=== PATIENT | female | born 1965 | race African-American/Black ===

== ENCOUNTER 2016-10-12 13:17 | Emergency (ER) | payer MEDICARE | END 2016-10-12 14:49 | disposition home or self-care (01) | LOC: D.ER 13:17 | DX: M54.16 Radiculopathy, lumbar region (principal); F17.200 Nicotine dependence, unspecified, uncomplicated; I10 Essential (primary) hypertension ==

== ENCOUNTER 2016-12-13 14:17 | Emergency (ER) | payer MEDICARE | END 2016-12-13 21:04 | disposition home or self-care (01) | LOC: D.ER 14:17 | DX: M25.551 Pain in right hip (principal); I10 Essential (primary) hypertension; E11.9 Type 2 diabetes mellitus without complications; F17.200 Nicotine dependence, unspecified, uncomplicated ==

== ENCOUNTER 2017-01-03 09:41 | Emergency (ER) | payer MEDICARE | END 2017-01-03 10:40 | disposition home or self-care (01) | LOC: D.ER 09:41 | DX: S76.011A Strain of muscle, fascia and tendon of right hip, initial encounter (principal); X58.XXXA Exposure to other specified factors, initial encounter; Y93.89 Activity, other specified; Y92.89 Other specified places as the place of occurrence of the external cause; M62.838 Other muscle spasm; M54.5 Low back pain; F17.200 Nicotine dependence, unspecified, uncomplicated; E11.9 Type 2 diabetes mellitus without complications; I10 Essential (primary) hypertension ==

== ENCOUNTER 2017-01-19 19:56 | Emergency (ER) | payer MEDICARE | END 2017-01-19 23:45 | disposition home or self-care (01) | LOC: D.ER 19:56 | DX: S86.912A Strain of unspecified muscle(s) and tendon(s) at lower leg level, left leg, initial encounter (principal); X58.XXXA Exposure to other specified factors, initial encounter; Y93.89 Activity, other specified; Y92.89 Other specified places as the place of occurrence of the external cause; E11.9 Type 2 diabetes mellitus without complications; I10 Essential (primary) hypertension; M54.16 Radiculopathy, lumbar region; F17.200 Nicotine dependence, unspecified, uncomplicated ==

== ENCOUNTER 2017-03-12 18:16 | Emergency (ER) | payer MEDICARE | END 2017-03-12 19:37 | disposition home or self-care (01) | LOC: D.ER 18:16 | DX: M62.838 Other muscle spasm (principal); E11.9 Type 2 diabetes mellitus without complications; I10 Essential (primary) hypertension ==

== ENCOUNTER 2017-03-15 10:48 | Emergency (ER) | payer MEDICARE | END 2017-03-15 11:53 | disposition home or self-care (01) | LOC: D.ER 10:48 | DX: M79.604 Pain in right leg (principal); E11.9 Type 2 diabetes mellitus without complications; I10 Essential (primary) hypertension; M54.16 Radiculopathy, lumbar region ==

== ENCOUNTER 2017-09-10 12:29 | Emergency (ER) | payer MEDICARE | END 2017-09-10 15:04 | disposition home or self-care (01) | LOC: D.ER 12:29 | DX: S39.012A Strain of muscle, fascia and tendon of lower back, initial encounter (principal); X58.XXXA Exposure to other specified factors, initial encounter; Y93.89 Activity, other specified; Y92.89 Other specified places as the place of occurrence of the external cause; M79.652 Pain in left thigh; M79.651 Pain in right thigh; E11.9 Type 2 diabetes mellitus without complications; I10 Essential (primary) hypertension ==

== ENCOUNTER 2018-10-08 21:57 | Emergency (ER) | payer MEDICARE ==
[~2018-10-08] VITALS: Ht 149.9 cm; Wt 81.6 kg
[2018-10-08 22:34] VITALS: Ht 149.9 cm; Wt 81.6 kg
[2018-10-08] MEDS ORDERED: PRINZIDE 20/12.1 TA1 PO (22:36)
[2018-10-09 02:12] VITALS: BP 136/89
[2018-10-09] MEDS ORDERED: EC-NAPROSYN500 MG PO (22:03)
== END 2018-10-09 02:20 | disposition home or self-care (01) ==
LOC: D.ER 21:57
DX: S70.11XA Contusion of right thigh, initial encounter (principal); X58.XXXA Exposure to other specified factors, initial encounter; Y93.89 Activity, other specified; Y92.039 Unspecified place in apartment as the place of occurrence of the external cause; E11.9 Type 2 diabetes mellitus without complications; I10 Essential (primary) hypertension

== ENCOUNTER 2018-10-09 19:34 | Emergency (ER) | payer MEDICARE ==
[~2018-10-09] VITALS: Ht 149.9 cm; Wt 93.6 kg
[~2018-10-09 19:34] MED LIST: PRINZIDE 20/12.1 TA1 PO
[2018-10-09 19:45] VITALS: Ht 149.9 cm; Wt 93.6 kg
[2018-10-09] MEDS ORDERED: EC-NAPROSYN500 MG PO (22:03)
[2018-10-09 22:45] VITALS: BP 161/68
== END 2018-10-09 22:46 | disposition home or self-care (01) ==
LOC: D.ER 19:34
DX: M79.604 Pain in right leg (principal); Z76.5 Malingerer [conscious simulation]; I10 Essential (primary) hypertension; F17.200 Nicotine dependence, unspecified, uncomplicated

== ENCOUNTER 2019-07-14 00:20 | Emergency (ER) | payer MEDICARE ==
[~2019-07-14] VITALS: Ht 149.9 cm; Wt 64.5 kg
[~2019-07-14 00:20] MED LIST changes: +EC-NAPROSYN500 MG PO
[2019-07-14 00:22] VITALS: Ht 149.9 cm; Wt 64.5 kg
[2019-07-14 00:57] VITALS: BP 105/49
== END 2019-07-14 00:57 | disposition home or self-care (01) ==
LOC: D.ER 00:20
DX: Z71.1 Person with feared health complaint in whom no diagnosis is made (principal)

== ENCOUNTER 2019-12-21 01:27 | Emergency (ER) | payer MEDICARE ==
[~2019-12-21] VITALS: Ht 149.9 cm; Wt 63.6 kg
[2019-12-21 01:35] VITALS: Ht 149.9 cm; Wt 63.6 kg
[2019-12-21 02:38] LABS: BASOPHILS 0.6 % (0-2); HEMATOCRIT 41.2 % (36.0-48.0); HEMOGLOBIN 13.4 g/dL (12-16); IMMATURE GRANULOCYTES 0.2 % (0-5); LYMPHOCYTES 41.3 % (15-50); MCH 28.3 pg (26.0-34.0); MCHC 32.5 g/dL (31.0-37.0); MCV 86.9 fL (80.0-100.0); MEAN PLATELET VOLUME 8.9 fL (7.4-10.4); MONOCYTES 5.1 % (2-11); NEUTROPHILS 48.8 % (40-80); PLATELET COUNT 226 10x3/uL (130-400); RBC 4.74 10x6/uL (4.00-5.40); RDW 13.3 % (11.5-14.5); WBC 8.1 10x3/uL (4.8-10.8)
[2019-12-21 02:43] LABS: ANION GAP 8.8 mmol/L (8-16); CALCIUM 9.6 mg/dL (8.5-10.1); CARBON DIOXIDE 30.6 mmol/L (21.0-32.0); POTASSIUM - SERUM 3.4 mmol/L (3.5-5.1)
[2019-12-21] MEDS ORDERED: NORVASC5 MG PO (02:59)
[2019-12-21 03:07] VITALS: BP 156/78
== END 2019-12-21 03:19 | disposition home or self-care (01) ==
LOC: D.ER 01:27
PROVIDERS: Emergency Medicine
DX: I10 Essential (primary) hypertension (principal); R05 Cough

== ENCOUNTER 2020-03-27 15:19 | Emergency (ER) | payer MEDICARE ==
[~2020-03-27] VITALS: Ht 149.9 cm; Wt 63.6 kg
[~2020-03-27 15:19] MED LIST changes: +NORVASC5 MG PO
[2020-03-27 15:44] VITALS: BP 172/86; Ht 149.9 cm; Wt 63.6 kg
[2020-03-27] MEDS ORDERED: NORVASC5 MG PO (16:09)
[2020-03-27] MEDS ORDERED: ZESTORETIC 20-1 EACH PO (16:09)
== END 2020-03-27 16:22 | disposition home or self-care (01) ==
LOC: D.ER 15:19
DX: I10 Essential (primary) hypertension (principal); G89.29 Other chronic pain; F20.9 Schizophrenia, unspecified; Z76.0 Encounter for issue of repeat prescription; Z72.0 Tobacco use

== ENCOUNTER 2020-04-03 14:23 | Emergency (ER) | payer MEDICARE ==
[~2020-04-03] VITALS: Ht 149.9 cm; Wt 68.2 kg
[~2020-04-03 14:23] MED LIST changes: +ZESTORETIC 20-1 EACH PO
[2020-04-03 14:37] VITALS: BP 129/66; Ht 149.9 cm; Wt 68.2 kg
== END 2020-04-03 16:45 | disposition left against medical advice (07) ==
LOC: D.ER 14:23
DX: R03.0 Elevated blood-pressure reading, without diagnosis of hypertension (principal)